=== PATIENT | female | born 1940 | race Caucasian/White ===

== ENCOUNTER 2017-07-13 17:33 | Emergency (ER) | payer MEDICARE ==
[~2017-07-13] VITALS: Ht 165.1 cm; Wt 90.0 kg
[~2017-07-13 17:33] MED LIST: CHOL3000 PO; ESTR2TAB PO; FLUO10TA PO; LEVO100T5 PO; LOSA25TA5 PO; OXYC-306 PO; SIMV40TA3 PO
[2017-07-13] MEDS ORDERED: HYDROcodone/APAP 5/325 TABLET PO ONE (18:58)
[2017-07-13] MEDS ORDERED: ONDANSETRON ODT 4 MG PO ONE (19:00)
[2017-07-13] MEDS ORDERED: ONDANSETRON ODT 4 MG ONE (19:04)
[2017-07-13] MEDS ORDERED: HYDROcodone/APAP 5/325 TABLET ONE (19:04)
[2017-07-13 20:11] VITALS: BP 138/79
== END 2017-07-13 20:14 | disposition home or self-care (01) ==
LOC: ED 20:08
DX: S83.412A Sprain of medial collateral ligament of left knee, initial encounter (principal); S83.422A Sprain of lateral collateral ligament of left knee, initial encounter; I10 Essential (primary) hypertension; E78.00 Pure hypercholesterolemia, unspecified; E03.9 Hypothyroidism, unspecified; M71.21 Synovial cyst of popliteal space [Baker], right knee; I82.411 Acute embolism and thrombosis of right femoral vein; Z87.891 Personal history of nicotine dependence; X58.XXXA Exposure to other specified factors, initial encounter; Y93.89 Activity, other specified; Y92.89 Other specified places as the place of occurrence of the external cause; Y99.8 Other external cause status
CPT/HCPCS: 73564; 93971; 99284; Q0162

== ENCOUNTER → 2017-07-30 | Outpatient (CLI) | payer MEDICARE | END | disposition home or self-care (01) | LOC: CFH 06:50 | PROVIDERS: ATTEND Orthopaedic Surgery | DX: M25.461 Effusion, right knee (principal); M71.21 Synovial cyst of popliteal space [Baker], right knee ==